=== PATIENT | female | born 1995 | race African-American/Black ===

== ENCOUNTER 2018-12-27 23:52 | Emergency (ER) | payer MEDICAID ==
[~2018-12-27] VITALS: Ht 167.6 cm; Wt 91.0 kg
[2018-12-27 23:57] VITALS: BP 111/76
== END 2018-12-28 03:15 | disposition left against medical advice (07) ==
LOC: ER 23:52
DX: Z53.21 Procedure and treatment not carried out due to patient leaving prior to being seen by health care provider (principal)

== ENCOUNTER 2019-01-29 09:04 | Emergency (ER) | payer MEDICAID ==
[~2019-01-29] VITALS: Ht 160 cm; Wt 91.0 kg
[2019-01-29] MEDS ORDERED: ONDANSETRON 4MG ODT PO ONE (10:00)
[2019-01-29 10:25] VITALS: BP 138/84
== END 2019-01-29 10:25 | disposition home or self-care (01) ==
LOC: ER 09:17
DX: R11.0 Nausea (principal); R10.30 Lower abdominal pain, unspecified; Z98.890 Other specified postprocedural states
CPT/HCPCS: 81025; 99283; Q0162

== ENCOUNTER 2019-02-07 08:05 | Emergency (ER) | payer MEDICAID ==
[~2019-02-07] VITALS: Ht 160 cm; Wt 91.0 kg
[2019-02-07] MEDS ORDERED: MORPHINE SULFATE 2 MG/ML CPJ (NOT FOR IM USE) IV ONE (09:45)
[2019-02-07 10:01] LABS: BASOPHILS % 0.3 % (0.0-2.0); CHLORIDE 111 mEq/L (98-107); EOSINOPHILS % 0.9 % (0.0-5.0); HEMATOCRIT. 37.1 % (36.0-48.0); HEMOGLOBIN. 12.6 g/dL (12.0-16.0); LYMPHOCYTES % 16.1 % (20.0-50.0); MEAN CORPUSCULAR VOLUME 88.7 fL (81.0-99.0); MEAN PLATELET VOLUME 7.2 fl (7.4-10.4); MONOCYTES % 7.4 % (2.0-8.0); NEUTROPHILS % 75.3 % (40.0-76.0); PLATELET 257 x1000/uL (130-400); RED BLOOD CELL COUNT 4.19 mill/uL (4.2-5.4); RED CELL DISTRIBUTION WIDTH 13.7 % (11.6-14.6)
[2019-02-07 10:02] LABS: INR 1.1; PROTHROMBIN TIME 10.8 sec (9.6-11.0)
[2019-02-07 10:37] LABS: CLARITY URINE CLOUDY (CLEAR); COLOR URINE YELLOW (YELLOW); KETONES URINE NEGATIVE (NEGATIVE); LEUKOCYTE ESTERASE URINE 3+ (NEGATIVE); NITRITE URINE POSITIVE (NEGATIVE); OCCULT BLOOD URINE 2+ (NEGATIVE); PROTEIN URINE TRACE (NEGATIVE); SPECIFIC GRAVITY URINE 1.019 (1.005-1.030)
[2019-02-07 11:40] LABS: HCG SCREEN NEGATIVE
[2019-02-07 11:45] VITALS: BP 115/70
== END 2019-02-07 11:52 | disposition home or self-care (01) ==
LOC: ER 08:22
DX: N39.0 Urinary tract infection, site not specified (principal)
CPT/HCPCS: 36415; 80053; 81003; 81025; 83690; 84703; 85025; 85610; 87077; 87086; 87186; 96374; 99283; J2270

== ENCOUNTER 2019-02-14 10:33 | Emergency (ER) | payer MEDICAID ==
[~2019-02-14] VITALS: Ht 167.6 cm; Wt 82.0 kg
[2019-02-14] MEDS ORDERED: METOCLOPRAMIDE HCL 10MG/2ML VIAL IM NR (11:57)
[2019-02-14] MEDS ORDERED: ACETAMINOPHEN 325MG TABLET PO NR (11:57)
[2019-02-14] MEDS ORDERED: ACETAMINOPHEN 325MG TABLET ONE (12:34)
[2019-02-14] MEDS ORDERED: METOCLOPRAMIDE HCL 10MG/2ML VIAL ONE (12:35)
[2019-02-14 14:35] VITALS: BP 106/66
== END 2019-02-14 14:44 | disposition home or self-care (01) ==
LOC: ER 10:38
DX: R51 Headache (principal)
CPT/HCPCS: 70450; 81025; 99284; J2765; Z7610

== ENCOUNTER 2019-02-23 18:15 | Emergency (ER) | payer MEDICAID ==
[~2019-02-23] VITALS: Ht 160 cm; Wt 100.0 kg
[2019-02-23 19:10] VITALS: BP 132/85
== END 2019-02-24 00:22 | disposition left against medical advice (07) ==
LOC: ER 22:56
DX: Z53.21 Procedure and treatment not carried out due to patient leaving prior to being seen by health care provider (principal)

== ENCOUNTER 2019-05-01 09:51 | Emergency (ER) | payer MEDICAID ==
[~2019-05-01] VITALS: Ht 165.1 cm; Wt 97.0 kg
[2019-05-01] MEDS ORDERED: ONDANSETRON 4MG ODT PO ONE (12:30)
[2019-05-01 14:05] VITALS: BP 112/68
== END 2019-05-01 14:00 | disposition home or self-care (01) ==
LOC: ER 09:56
DX: R11.0 Nausea (principal)
CPT/HCPCS: 81025; 99283; Q0162